=== PATIENT | female | born 1965 | race Caucasian/White ===

== ENCOUNTER 2020-01-01 10:33 | Observation (INO) | payer OTHER ==
--- OUTSIDE RECORDS SUMMARY | 2020-01-01 10:35 | XMS REPORT ---
:1965 [facility] Address [facility] [address] Dr. Cornejo [address] [place] [id number] Care Team Providers Name Role Phone Unavailable Unavailable Unavailable Problems This patient has no known problems. Allergies, Adverse Reactions, Alerts This patient has no known allergies or adverse reactions. Medications This patient has no known medications. Encounters Start End Encounter Admission Attending Care Care Encounter Date/Time Date/Time Type Type Clinicians Facility Department ID 2019-10-17 Outpatient [facility] [id number] 08:50:38
[2020-01-01] MEDS ORDERED: PROMETHAZINE INJ 25 MG/ML AMP IV PRN (10:53)
[2020-01-01] MEDS ORDERED: POLYETHYL GLY 3350 17 GM/DOSE PO PRN (11:00)
[2020-01-01] MEDS ORDERED: ONDANSETRON 4 MG (ODT) TAB PO PRN (11:00)
[2020-01-01] MEDS ORDERED: ACETAMINOPHEN 325 MG TABLET PO PRN (11:00)
[2020-01-01] MEDS ORDERED: DIPHENHYDRAMINE 25 MG TAB/CAP PO PRN (11:00)
[2020-01-01] MEDS: NACHLORIDE 0.45% 1,000 ML IV SCH ×2 (11:11→21:11)
[2020-01-01] MEDS: ONDANSETRON 4 MG/2 ML VIAL IV PRN ×2 (11:23→23:33)
[2020-01-01 11:48] LABS: Absolute Lymphocytes (CBC) 1.4 K/uL (0.7-4.9); Basophils % 0.6 % (0-1.3); Hematocrit 41.6 % (36.0-45.0); MPV 8.1 fL (7.6-11.3); RBC Red Blood Cell Count 4.76 M/uL (3.86-4.86)
[2020-01-01 12:00] LABS: Protime INR 1.05
[2020-01-01 12:03] VITALS: BMI 49.8
[2020-01-01] MEDS: METOPROLOL TARTRATE 5 MG/5 ML INJ IV SCH ×2 (12:09→17:09)
[2020-01-01 12:26] LABS: Albumin 2.7 g/dL (3.4-5.0); Bilirubin Direct 0.2 mg/dL (0-0.2); Bilirubin Total 0.7 mg/dL (0.2-1.0); Phosphorus 1.4 mg/dL (2.5-4.9); Potassium 3.5 mmol/L (3.5-5.1); Protein, Total 7.2 g/dL (6.4-8.2); Thyroid Stimulating Hormone 1.57 uIU/mL (0.360-3.740)
[2020-01-01] MEDS ORDERED: INFLUENZA VACCINE (for 3y+) 0.5 ML DOSE IMVAC ONE (13:00)
--- NOTE | 2020-01-01 14:05 | RAD REPORT ---
EXAM DESCRIPTION: CT - Abdomen Pelvis W Contrast - 01/01/2020 1:40 pm CLINICAL HISTORY: Abdominal pain. Diarrhea COMPARISON: None. TECHNIQUE: Computed axial tomography of the abdomen and pelvis was obtained. 100 cc Isovue-300 is ad ministered intravenously. Oral contrast was given. All CT scans are performed using dose optimization technique as appropriate and may include automated exposure control or mA/KV adjustment according to patient size. FINDINGS: The liver, spleen, pancreas, adrenals and kidneys appear unremarkable. Sigmoidectomy. There is no evidence of diverticulitis. Hysterectomy 5 centimeter fluid collection lies to the right of sigmoid colon. IMPRESSION: A 5 centimeter fluid collection lies to the right of sigmoid colon. It is recommended th at the patient have a pelvic ultrasound for further evaluation
--- NOTE | 2020-01-01 14:21 | RAD REPORT ---
EXAM DESCRIPTION: Nikolas Branch (2 Views)01/01/2020 2:13 pm CLINICAL HISTORY: Abdominal pain COMPARISON: 2017 FINDINGS: The lungs appear clear of acute infiltrate. The heart is normal size IMPRESSION: No acute abnormalities displayed
[2020-01-01 15:05] LABS: Urine Appearance CLEAR; Urine Bilirubin NEGATIVE (NEG); Urine Blood 2+ (NEG); Urine Color YELLOW; Urine Glucose NEGATIVE (NEG); Urine Microscopic Reflex NO UMIC; Urine Protein NEGATIVE (NEG); Urine Specific Gravity 1.015 (1.005-1.030)
[2020-01-01] MEDS ORDERED: POTASSIUM CL SA 10 MEQ TAB PO ONE (16:00)
[2020-01-01] MEDS ORDERED: HOME MED 1 EA UNK (Duloxetine Hcl [Cymbalta] 1 CAP) PO SCH (21:00)
[2020-01-01] MEDS: CHOLESTYRAMINE/ASP 4 GM/PKT PO SCH (21:03)
[2020-01-01] MEDS: DULOXETINE 30 MG CAP PO SCH (21:04)
[2020-01-01] MEDS: HYDRALAZINE HCL 25 MG TABLET PO SCH (21:04)
[2020-01-01 23:05] VITALS: O2SAT 96
[2020-01-01] MEDS: LOPERAMIDE HCL 2 MG CAPSULE PO PRN (23:32)
[2020-01-02] MEDS: METOPROLOL TARTRATE 5 MG/5 ML INJ IV SCH ×2 (00:04→05:55)
[2020-01-02] MEDS: METRONIDAZOLE 500mg IVPB 500 MG/100 ML BAG IV SCH ×2 (01:42→08:55)
[2020-01-02 03:11] LABS: Absolute Lymphocytes (CBC) 2.2 K/uL (0.7-4.9); Basophils % 0.6 % (0-1.3); Lymphocytes % 21.9 % (15.3-44.8); RBC Red Blood Cell Count 4.36 M/uL (3.86-4.86)
[2020-01-02 03:29] LABS: Magnesium 2.1 mg/dL (1.8-2.4); Potassium 3.6 mmol/L (3.5-5.1)
[2020-01-02] MEDS: NACHLORIDE 0.45% 1,000 ML IV SCH ×2 (05:58→08:50)
[2020-01-02] MEDS ORDERED: PROPRANOLOL HCL 60 MG SA CAP PO SCH (09:00)
[2020-01-02] MEDS: CHOLESTYRAMINE/ASP 4 GM/PKT PO SCH (09:00)
[2020-01-02] MEDS ORDERED: LISDEXAMFETAMINE DIMESYLATE 70 MG PO SCH (09:00)
[2020-01-02] MEDS ORDERED: ENOXAPARIN 40 MG/0.4 ML SQ SCH (09:00)
[2020-01-02] MEDS ORDERED: CIPROFLOXACIN 400mg IV 400 MG/200 ML BAG IV SCH (09:00)
[2020-01-02] MEDS: LOPERAMIDE HCL 2 MG CAPSULE PO PRN (09:50)
[2020-01-02] MEDS: DULOXETINE 30 MG CAP PO SCH (09:51)
[2020-01-02] MEDS: HYDRALAZINE HCL 25 MG TABLET PO SCH (09:52)
--- NOTE | 2020-01-02 12:02 | RAD REPORT ---
EXAM DESCRIPTION: US - Pelvis Complete - 01/02/2020 11:48 am CLINICAL HISTORY: PELVIC MASS, VS CYST. COMPARISON: Abdomen Pelvis W Contrast dated 01/01/2020 TECHNIQUE: Transabdominal and limited endovaginal sonography performed. FINDINGS: Patient is status post complete hysterectomy. Uterus and ovaries are not identified on the study matching the history. A mostly contracted urinary bladder is seen with no gross abnormality. The suspected fluid collection on the CT study of January 01 is not identified he was examination likely obscured by bowel. IMPRESSION: The 5 centimeter fluid collection detailed on the recent CT study is not identified at s onography, probably obscured by bowel. The mass could be a chronic postoperative seroma related to prior sigmoid surgery. A large exophytic bladder diverticulum would be possible. The bladder did not have any contrast at this CT study.Paraov melvin cyst is possible. Diverticular abscess is unlikely given the absence of any other inflammatory changes or active bowel process. A follow-up CT pelvis study in 3-4 month could be performed to monitor for stability.
[2020-01-02 14:49] VITALS: BP 143/81; TEMP 98.4
--- NOTE | 2020-01-02 18:24 | P.DS ---
Admission Date: 01/01/20 Discharge Date: 01/02/20 Disposition: ROUTINE DISCHARGE Discharge Condition: GOOD Hospital Course: TJ CAME WITH SEVERE NAUSEA, DIARRHEA AND HOARSE VOICE. SHE LOOKED POORLY SO I DECIDED TO ADMIT HER. SHE HAS NO FLU. ON CT SCAN SHE HAS A CAVITARY LESION VS. BLADDER DIVERTICULUM ON CT SCAN. SHE HAS NO SYMPTOM FROM IT. SHE IS AWARE THAT WE WILL NEED TO DO FOLLOW UP ON THE SCAN LATER. SHE MAY NEED CYSTOSCOPY. SHE IS MEDICALLY STABLE TO GO HOME ON ORAL ANTIBIOTICS. Vital Signs/Physical Exam: Temp Pulse Resp BP Pulse Ox 98.4 F 87 18 143/81 H 96 01/02/20 12:00 01/02/20 12:00 01/02/20 12:00 01/02/20 12:00 01/02/20 12:00 Laboratory Data at Discharge: WBC 10.3 K/uL (4.3-10.9) 01/02/20 03:00 Hgb 12.5 g/dL (12.0-15.0) 01/02/20 03:00 Hct 38.0 % (36.0-45.0) 01/02/20 03:00 Plt Count 312 K/uL (152-406) 01/02/20 03:00 PT 12.4 SECONDS (9.5-12.5) 01/01/20 11:30 INR 1.05 01/01/20 11:30 APTT 25.1 SECONDS (24.3-36.9) 01/01/20 11:30 Sodium 140 mmol/L (136-145) 01/02/20 03:00 Potassium 3.6 mmol/L (3.5-5.1) 01/02/20 03:00 BUN 10 mg/dL (7-18) 01/02/20 03:00 Creatinine 0.95 mg/dL (0.55-1.3) 01/02/20 03:00 Glucose 116 mg/dL (74-106) H 01/02/20 03:00 Phosphorus 1.4 mg/dL (2.5-4.9) L 01/01/20 11:30 Magnesium 2.1 mg/dL (1.8-2.4) 01/02/20 03:00 Total Bilirubin 0.7 mg/dL (0.2-1.0) 01/01/20 11:30 AST 10 U/L (15-37) L 01/01/20 11:30 ALT 12 U/L (12-78) 01/01/20 11:30 Alkaline Phosphatase 94 U/L (45-117) 01/01/20 11:30 Troponin I < 0.02 ng/mL (0.0-0.045) 01/02/20 03:00 Amylase 32 U/L (25-115) 01/01/20 11:30 Home Medications: Duloxetine HCl [Cymbalta] 1 cap PO BID 08/12/17 Lisdexamfetamine Dimesylate [Vyvanse] 70 mg PO DAILY 08/12/17 Galcanezumab-Gnlm [Emgality Syringe] 120 mg SQ SEECOM 01/01/20 Hydralazine [Apresoline*] 1 tab PO BID 01/01/20 Propranolol [Inderal LA*] 1 tab PO DAILY 01/01/20 Ciprofloxacin HCl [Cipro 500 MG Tablet] 500 mg PO BID #10 tab 01/02/20 Olmesartan Medoxomil [Benicar] 1 tab PO DAILY 01/02/20 metroNIDAZOLE [Flagyl*] 250 mg PO Q8H #21 tablet 01/02/20 New Medications: Ciprofloxacin HCl [Cipro 500 MG Tablet] 500 mg PO BID #10 tab metroNIDAZOLE [Flagyl*] 250 mg PO Q8H #21 tablet
== END 2020-01-02 14:17 | disposition home or self-care (01) ==
LOC: 2ND 10:33
PROVIDERS: ADMIT Internal Medicine; ATTEND Internal Medicine
DX: R11.0 Nausea (principal); R19.7 Diarrhea, unspecified; R49.0 Dysphonia; Z88.0 Allergy status to penicillin; I10 Essential (primary) hypertension
CPT/HCPCS: 87040; 85025 ×2; 80048 ×2; 36415 ×2; 82150; 83735 ×2; 84100; 85610; 80076; 83605; 85730; 84443; 81003; 84484 ×3; 82607; 84145; 82306; 87804 ×2; 74177; 71046; 76856; Q9967; J2550; J2405 ×2; J0744; G0379; G0378 ×3; J1650

== ENCOUNTER 2020-01-22 13:55 | Observation (INO) | payer OTHER ==
--- OUTSIDE RECORDS SUMMARY | 2020-01-22 14:10 | XMS REPORT ---
:1965 [facility] Address [address] [place] [address] Dr. Cornejo [address] [place] [id number] Care Team Providers Name Role Phone Unavailable Unavailable Unavailable Problems This patient has no known problems. Allergies, Adverse Reactions, Alerts This patient has no known allergies or adverse reactions. Medications This patient has no known medications. Encounters Start End Encounter Admission Attending Care Care Encounter Date/Time Date/Time Type Type Clinicians Facility Department ID 2019-10-17 Outpatient [facility] 7500 08:50:38
[2020-01-22 15:45] LABS: Absolute Lymphocytes (CBC) 2.3 K/uL (0.7-4.9); Basophils % 0.9 % (0-1.3); Hematocrit 40.5 % (36.0-45.0); Lymphocytes % 24.6 % (15.3-44.8); RBC Red Blood Cell Count 4.67 M/uL (3.86-4.86)
[2020-01-22 15:57] VITALS: BMI 51.1
[2020-01-22] MEDS ORDERED: POLYETHYL GLY 3350 17 GM/DOSE PO PRN (16:00)
[2020-01-22] MEDS ORDERED: ONDANSETRON 4 MG/2 ML VIAL IV PRN (16:00)
[2020-01-22] MEDS ORDERED: LOPERAMIDE HCL 2 MG CAPSULE PO PRN (16:00)
[2020-01-22] MEDS ORDERED: NACHLORIDE 0.45% 1,000 ML IV SCH (16:00)
[2020-01-22] MEDS ORDERED: PNEUMOCOCCAL VACCINE 0.5 ML IMVAC ONE (16:00)
[2020-01-22] MEDS ORDERED: DIPHENHYDRAMINE 25 MG TAB/CAP PO PRN (16:00)
[2020-01-22] MEDS ORDERED: ONDANSETRON 4 MG (ODT) TAB PO PRN (16:00)
[2020-01-22] MEDS ORDERED: INFLUENZA VACCINE (for 3y+) 0.5 ML DOSE IMVAC ONE (16:00)
[2020-01-22] MEDS ORDERED: ACETAMINOPHEN 325 MG TABLET PO PRN (16:00)
[2020-01-22 16:18] LABS: Albumin 3.3 g/dL (3.4-5.0); Bilirubin Direct 0.1 mg/dL (0-0.2); Bilirubin Total 0.5 mg/dL (0.2-1.0); Magnesium 2.2 mg/dL (1.8-2.4); Phosphorus 3.1 mg/dL (2.5-4.9); Potassium 3.9 mmol/L (3.5-5.1); Protein, Total 7.7 g/dL (6.4-8.2); Thyroid Stimulating Hormone 1.76 uIU/mL (0.360-3.740)
[2020-01-22] MEDS: METHYLPREDNISOLONE 40 MG INJ IV SCH ×2 (16:51→22:36)
[2020-01-22] MEDS: ENOXAPARIN 40 MG/0.4 ML SQ SCH (16:52)
--- NOTE | 2020-01-22 17:30 | RAD REPORT ---
EXAM DESCRIPTION: CT - Abdomen Pelvis W Contrast - 01/22/2020 5:17 pm CLINICAL HISTORY: Abdominal pain COMPARISON: December 2019 TECHNIQUE: Computed axial tomography of the abdomen pelvis was obtained. 100 cc Isovue-300 was admin istered intravenously. Oral contrast was not requested which limits evaluation of bowel. All CT scans are performed using dose optimization technique as appropriate and may include automated exposure control or mA/KV adjustment according to patient size. FINDINGS: A sub centimeter low-density area within the right lobe of the liver. Spleen, pancreas, adrenal and kidneys appear unremarkable. There is no evidence of diverticulitis. A sigmoidectomy. Hysterectomy. Previously described 5 centimeter fluid collection within the pelvis has resolved IMPRESSION: Sub centimeter low-density area within the right lobe of liver is nonspecific but probab ly benign. Follow-up ultrasound in 3 months recommended
--- NOTE | 2020-01-22 17:34 | RAD REPORT ---
EXAM DESCRIPTION: CT - Chest For Pe Angio - 01/22/2020 5:17 pm CLINICAL HISTORY: Chest pain COMPARISON: None. TECHNIQUE: Dynamically enhanced axial 3 mm thick images of the chest were obtained during administra tion of <100> mL Isovue 370 IV contrast. Coronal and oblique reconstruction images were generated and reviewed. Exam utilizes a protocol for optimal evaluation of pulmonary arterial tree. Maximum intensity projections 3D imaging was utilized All CT scans are performed using dose optimization technique as appropriate and may include automated exposure control or mA/KV adjustment according to patient size. FINDINGS: A pulmonary embolus is not seen. A thoracic aortic aneurysm is not noted. A pleural effusion is not seen. A pericardial effusion is not seen. A lung consolidation is not present. 25 millimeter substernal nodule abuts right lobe of the thyroid gland IMPRESSION: Negative for a pulmonary embolism. 25 millimeters substernal nodule abuts the right lobe of the thyroid gland. Nonemergent ultrasound re commended
--- NOTE | 2020-01-22 17:38 | RAD REPORT ---
EXAM DESCRIPTION: Nikolas Mary And Jenifer (2 Views)01/22/2020 5:25 pm CLINICAL HISTORY: Cough COMPARISON: December 2019 FINDINGS: The lungs appear clear of acute infiltrate. The heart is borderline enlarged IMPRESSION: No acute abnormalities displayed
[2020-01-22 23:10] LABS: Urine Appearance CLEAR; Urine Bilirubin NEGATIVE (NEG); Urine Blood 2+ (NEG); Urine Color YELLOW; Urine Glucose NEGATIVE (NEG); Urine Protein TRACE (NEG); Urine Specific Gravity >=1.030 (1.005-1.030); Urine Urobilinogen 0.2 mg/dL (0.2-1.0)
[2020-01-22 23:11] LABS: Urine Microscopic Reflex ORDER UMIC
[2020-01-22 23:55] LABS: Urine Bacteria <20 /HPF (<20)
[2020-01-23 04:18] LABS: Absolute Lymphocytes (CBC) 0.6 K/uL (0.7-4.9); Basophils % 0.3 % (0-1.3); Hematocrit 40.5 % (36.0-45.0); MPV 8.1 fL (7.6-11.3); RBC Red Blood Cell Count 4.63 M/uL (3.86-4.86)
[2020-01-23 04:31] LABS: Magnesium 1.9 mg/dL (1.8-2.4)
[2020-01-23 05:09] LABS: Blood Morphology Comment NOT SEEN (NOT SEEN); Platelet Estimate ADEQ
--- NOTE | 2020-01-23 08:52 | EKG ---
Test Date: 2020-01-22 Test Time: 15:48:07 Continuous Process Machine Operator: SOLO MEASUREMENT RESULTS: Intervals: Rate: 71 AK: 128 QRSD: 78 QT: 408 QTc: 443 [place]: P: 64 AK: 128 QRS: 32 T: 38 INTERPRETIVE STATEMENTS: Normal sinus rhythm Normal ECG Compared to ECG 08/11/2017 16:46:39 Sinus tachycardia no longer present Electronically Signed On 01-23-20 08:52:38 CDT by Carlton Hannah
[2020-01-23] MEDS: ENOXAPARIN 40 MG/0.4 ML SQ SCH (08:56)
[2020-01-23 09:28] VITALS: O2SAT 95
--- NOTE | 2020-01-23 09:58 | RAD REPORT ---
EXAM DESCRIPTION: USExtrem Venous W Compress Bil01/23/2020 9:50 am CLINICAL HISTORY: Elevated D-dimer COMPARISON: none FINDINGS: The common femoral, superficial femoral, popliteal and posterior tibial veins bilaterally are compressible and demonstrate augmentation. Doppler demonstrates good flow. IMPRESSION: No evidence of deep venous thrombosis involving either lower extremity.
--- NOTE | 2020-01-23 10:07 | RAD REPORT ---
EXAM DESCRIPTION: US - Thyroid Para Parotid Gland - 01/23/2020 9:40 am CLINICAL HISTORY: Thyroid nodule COMPARISON: CT chest January 22, 2020 FINDINGS: The right lobe of the thyroid measures 4.7 x 2.4 x 2.1 centimeters. 6 millimeter hypoechoi c nodule. 2 centimeter hypo to isoechoic nodule is also present within the inferior aspect of the rig ht lobe. The left lobe of the thyroid measures 4.5 x 1.9 x 1.3 centimeters. 6 millimeter hypoechoic nodule is present within the left lobe. An additional 1.6 centimeter mildly spongiform nodule is present IMPRESSION: Bilateral thyroid nodules probably benign. Follow up thyroid ultrasound in 6 months soni mmended to assess stability
[2020-01-23 12:06] VITALS: TEMP 98.1
[2020-01-23 12:53] VITALS: BP 160/80
[2020-01-23] MEDS ORDERED: DULOXETINE 30 MG CAP PO SCH (21:00)
[2020-01-23] MEDS ORDERED: HYDRALAZINE HCL 25 MG TABLET PO SCH ×2 (21:00)
--- NOTE | 2020-01-23 22:31 | DS ---
Date of Discharge: 01/23/2020 Final Diagnosis: Severe lower anterior chest pain, possible pleurisy. Secondary Diagnoses: 1.Morbid obesity. 2.Hypertension. 3.History of migraines. Hospital Course: Patient is a 54-year-old lady with past medical history of multiple medical problem s, who was just recently discharged home, complained to me about chest pain and shortness of breath. The pain is actually pleuritic in nature more and rib cage pain in nature, but she has shortness of breath. Her D-dimer was high at 600, so I kept her in hospital for 1 day, did a CT angiogram. Venou s Doppler were negative for pulmonary embolism and venous thrombosis. We found that there she has a thyroid nodule about 2 cm, which was confirmed by a thyroid sonogram that showed multinodular thyroid , but benign looking and patient was discharged home in stable condition. I gave her a dose of 1 day of steroids and that improved her pain. She will continue lidocaine patch topically to left over ch est, continue her home medications same as before, and follow up in office in about 10 days. EMERY/LIANG Voice ID: [id number] Report ID: [id number]
[2020-01-24] MEDS ORDERED: VALSARTAN 80 MG TAB PO SCH (09:00)
[2020-01-24] MEDS ORDERED: OLMESARTAN MEDOXOMIL PO SCH (09:00)
[2020-01-24] MEDS ORDERED: PROPRANOLOL HCL 60 MG SA CAP PO SCH ×2 (09:00)
== END 2020-01-23 14:52 | disposition home or self-care (01) ==
LOC: 4TH 14:03
PROVIDERS: ADMIT Internal Medicine; ATTEND Internal Medicine
DX: R07.89 Other chest pain (principal); R10.11 Right upper quadrant pain; R07.81 Pleurodynia; I10 Essential (primary) hypertension; E66.01 Morbid (severe) obesity due to excess calories; Z68.43 Body mass index [BMI] 50.0-59.9, adult; Z86.69 Personal history of other diseases of the nervous system and sense organs; E04.2 Nontoxic multinodular goiter
CPT/HCPCS: 93005; 87088; 85025 ×2; 87086; 80048 ×2; 36415 ×2; 82150; 83735 ×2; 84100; 85610; 85379; 80076; 85730; 84443; 87077; 87186; 82607; 83690; 84145; 82306; 83880; 71275; 74177; 71046; 93970; 76536; Q9967; G0379; J1650 ×2; J2920 ×2; G0378 ×3; 81003; 81015